=== PATIENT | male | born 1980 | race Caucasian/White ===

== ENCOUNTER 2016-09-27 17:16 | Inpatient (IN) | payer MEDICAID, OTHER ==
[~2016-09-27] VITALS: Ht 177.8 cm; Wt 63.2 kg
[2016-09-27] MEDS ORDERED: METH10SO PO (17:32)
[2016-09-27] MEDS ORDERED: LIDOCAINE HCL BUFFERED 1% 20 ML VIAL INJ ONE (18:15)
[2016-09-27] MEDS ORDERED: BACITRACIN 0.9 GM PACKET OINTMENT TP ONE (18:15)
[2016-09-27 18:25] LABS: BASOPHILS % (AUTO) 0.4 % (0.0-2.0); EOSINOPHILS % (AUTO) 0.5 % (1.0-6.0); HEMATOCRIT 46.1 % (41-53); HEMOGLOBIN 15.1 g/dL (13.5-17.5); LYMPHOCYTES % (AUTO) 25.5 % (22.0-44.0); MEAN CORPUSCULAR HEMOGLOBIN 29.6 pg (26.0-34.0); MEAN CORPUSCULAR HGB CONC 32.9 G/dL (31.0-37.0); MEAN CORPUSCULAR VOLUME 90 fL (80-100); MONOCYTES # (AUTO) 0.6 K/uL (0.1-1.0); NEUTROPHILS # (AUTO) 5.3 K/uL (1.8-7.7); NEUTROPHILS % (AUTO) 66.6 % (40.0-70.0); PLATELET COUNT (AUTO) 313 K/uL (150-450); RED BLOOD CELL COUNT(AUTO) 5.12 MIL/uL (4.50-5.90); RED CELL DISTRIBUTION WIDTH 13.3 % (11.5-14.5)
[2016-09-27 18:33] LABS: ANION GAP 14 mmol/L (8-16); CALCIUM, TOTAL 9.6 mg/dL (8.8-10.5); CARBON DIOXIDE 24 mmol/L (22-29); CHLORIDE 104 mmol/L (98-107); CREATININE 0.81 mg/dL (0.60-1.30); GLOMERULAR FILTR. RATE CALC > 60 mL/min (>60); SODIUM SERUM 142 mmol/L (136-145); UREA NITROGEN, BLOOD 19 mg/dL (7-18)
[2016-09-27 18:40] LABS: ALANINE AMINOTRANSFERASE 23 U/L (12-78); ALBUMIN 4.6 g/dL (3.4-5.0); ASPARTATE AMINOTRANSFERASE 26 U/L (15-37); BILIRUBIN,TOTAL 1.9 mg/dL (0.1-1.0); TOTAL PROTEIN, SERUM 8.5 g/dL (6.4-8.2)
[2016-09-27] MEDS ORDERED: ZOLPIDEM TARTRATE 10 MG TABLET PO PRN (19:45)
[2016-09-27] MEDS ORDERED: HALOPERIDOL 5 MG TABLET PO PRN (19:45)
[2016-09-27 21:53] VITALS: BP 146/76
[2016-09-27] MEDS ORDERED: ACETAMINOPHEN 325 MG TABLET PO PRN (23:45)
[2016-09-27] MEDS ORDERED: IBUPROFEN 400 MG TABLET PO PRN (23:45)
[2016-09-28 06:14] VITALS: BP 115/89
[2016-09-28] MEDS: NICOTINE 21 MG/24 HOUR PATCH TD SCH (08:40)
[2016-09-28] MEDS: BACITRACIN 28.4 GM OINTMENT TP SCH ×2 (08:40→16:50)
[2016-09-28] MEDS: LORazepam 2 MG TABLET PO PRN (08:44)
[2016-09-28 08:55] VITALS: BP 131/71
[2016-09-28] MEDS: CITALOPRAM HYDROBROMIDE 20 MG TABLET PO SCH (11:58)
[2016-09-28 16:00] VITALS: BP 110/73
[2016-09-29 03:15] VITALS: BP 116/70
[2016-09-29] MEDS: LORazepam 2 MG TABLET PO PRN ×2 (03:16→09:44)
[2016-09-29 08:09] VITALS: BP 115/63
[2016-09-29] MEDS: NICOTINE 21 MG/24 HOUR PATCH TD SCH (09:43)
[2016-09-29] MEDS: CITALOPRAM HYDROBROMIDE 20 MG TABLET PO SCH (09:43)
[2016-09-29] MEDS: BACITRACIN 28.4 GM OINTMENT TP SCH (09:44)
[2016-09-29] MEDS ORDERED: CITA20TA9 PO (11:06)
[2016-09-29] MEDS ORDERED: BACI28OI8 TP (11:07)
== END 2016-09-29 13:17 | disposition home or self-care (01) | DRG 740 ==
LOC: EMS 17:19 → B2S 20:05 → B3A 09-28 12:37
PROVIDERS: ADMIT Psychiatry & Neurology Psychiatry; ATTEND Psychiatry & Neurology Psychiatry
PROC: 0JQH3ZZ Repair Left Lower Arm Subcutaneous Tissue and Fascia, Percutaneous Approach (ICD-10-PCS; principal; 2016-09-27)
DX: F31.9 Bipolar disorder, unspecified (principal); F17.200 Nicotine dependence, unspecified, uncomplicated; F11.90 Opioid use, unspecified, uncomplicated; S61.512A Laceration without foreign body of left wrist, initial encounter; X78.8XXA Intentional self-harm by other sharp object, initial encounter; Y93.89 Activity, other specified; Y92.89 Other specified places as the place of occurrence of the external cause; Y99.8 Other external cause status; Z79.899 Other long term (current) drug therapy; Z91.030 Bee allergy status
CPT/HCPCS: 12002; 99285; G0480; J3490